=== PATIENT | male | born 1980 | race Caucasian/White ===

== ENCOUNTER 2022-05-16 10:40 | Outpatient (CLI) | payer OTHER ==
[~2022-05-16 10:40] MED LIST: LEVSIN0.125 MG PO
== END 2022-05-16 10:50 | disposition home or self-care (01) ==
LOC: PPH VACUNA 10:40
PROVIDERS: ATTEND Emergency Medicine Pediatric Emergency Medicine
DX: Z23 Encounter for immunization (principal)